=== PATIENT | male | born 1945 | race Asian ===

== ENCOUNTER 2017-02-11 10:36 | Observation (INO) | payer MEDICARE ==
[~2017-02-11 10:36] MED LIST: ACID REFLUX MED; ADULT LOW DOSE81 MG PO; ANXIETY MED; ATENOLOL/CHLORT1 TA PO; CALCIUM + VIT1 EACH PO; CHOLESTEROL PILL; COL-RITE100 M1 PO; DIOVAN80 M PO; DUONEB 2.5-0.5MG3 M1 NEB; HTN MED; K-DUR20 ME2 PO; LIPITOR40 MG PO; MED FOR OSTEOPOROSIS; METFORMIN HCL1000 MG PO; NON-ASPIRIN325 MG PO; OMEPRAZOLE20 M1 PO; SEROQUEL200 MG PO; SEROQUEL300 MG PO; TRICOR145 MG PO; [UNRECOGNIZED DRUG - REMARK]
[2017-02-11] MEDS ORDERED: RESTASIS0.4 ML/EA EACH EYE (10:40)
[2017-02-11] MEDS ORDERED: ATENOLOL-CHLOR1 EAC1 PO (10:40)
[2017-02-11] MEDS ORDERED: PRINIVIL10 M1 PO (10:40)
[2017-02-11] MEDS ORDERED: POTASSIUM CHLO20 ME3 PO (10:41)
[2017-02-11] MEDS ORDERED: FENOFIBRATE160 MG PO (10:41)
[2017-02-11] MEDS ORDERED: LIPITOR40 M1 PO (10:41)
[2017-02-11] MEDS ORDERED: MIRTAZAPINE30 M2 PO (10:42)
[2017-02-11] MEDS ORDERED: SEROQUEL200 M2 PO (10:42)
[2017-02-11] MEDS ORDERED: GLUCOPHAGE500 M3 PO (10:42)
[2017-02-11] MEDS ORDERED: TRAZODONE HCL50 M1 PO (10:42)
[2017-02-11] MEDS ORDERED: NAMENDA10 M1 PO (10:42)
[2017-02-11] MEDS ORDERED: CLOBETASOL PROP15 G1 TOP (10:43)
[2017-02-11] MEDS ORDERED: ASPIRIN81 M1 PO (10:43)
[2017-02-11 11:34] LABS: BASO % 0.2 % (0-2); EOS % 0.9 % (0-7); EOSINOPHIL ABSOLUTE COUNT 0.1 tho/cmm (0.0-0.7); HCT-HEMATOCRIT 38.2 % (36.0-53.5); HGB-HEMOGLOBIN 13.5 gm/dl (13.5-17.0); IMMATURE GRANULOCYTES ABSOLUTE 0.01 tho/cmm (0-0.03); IMMATURE GRANULOCYTES PERCENT 0.2 % (0-0.3); LYMPH % 31.9 % (20-45); LYMPH ABSOLUTE COUNT 1.8 tho/cmm (0.8-4.5); MCH (MEAN CORPUSCULAR HGB) 31.8 pg (28.0-32.0); MCHC MEAN CORPUSCULAR HGB CONC 35.3 % (32.0-36.0); MCV (MEAN CELL VOLUME) 89.9 fl (82.0-96.0); MEAN PLATELET VOLUME 12.1 cmc (9.4-12.4); MONO % 9.7 % (0-12); MONOCYTE ABSOLUTE COUNT 0.6 tho/cmm (0.0-1.2); NEUTROPHIL ABSOLUTE COUNT 3.3 tho/cmm (1.6-8.0); NEUTROPHIL-AUTOMATED 3.3 tho/cmm (1.6-8.0); NEUTROPHILS % 57.1 % (40-80); PLATELET COUNT 224 tho/cmm (150-450); RED BLOOD COUNT 4.25 mil/cmm (4.40-5.70); RED CELL DISTRIBUTION WIDTH 13.4 % (12.4-16.4); WHITE BLOOD COUNT 5.8 tho/cmm (4.0-10.0)
[2017-02-11 11:45] LABS: ALB/GLOB RATIO 0.9 (0.8-2.0); ALBUMIN 3.7 g/dl (3.5-5.0); ALKALINE PHOSPHATASE 38 U/L (33-138); ALT/SGPT 26 U/L (12-78); BILIRUBIN,TOTAL 0.4 mg/dl (0.0-1.5); BLOOD UREA NITROGEN 25 mg/dl (6-24); CALCIUM 8.9 mg/dl (8.5-10.5); CARBON DIOXIDE-VENOUS 26 mmol/L (22-32); CHLORIDE 96 mmol/l (96-110); CREATININE 1.49 mg/dl (0.60-1.30); GLUCOSE 179 mg/dL (70-110); LIPASE 327 U/L (73-393); SODIUM 133 mmol/L (135-145); eGFR VALUE FOR BLACK 54 mL/Min
[2017-02-11 11:51] LABS: ANION GAP 14 mmol/L (0-20); AST/SGOT 27 U/L (10-40)
[2017-02-11 12:32] LABS: URINE BILIRUBIN NEGATIVE (NEG); URINE BLOOD NEGATIVE (NEG); URINE GLUCOSE (UA) NEGATIVE (NEG); URINE KETONE NEGATIVE (NEG); URINE LEUKOCYTE ESTERASE NEGATIVE (NEG); URINE NITRITE NEGATIVE (NEG); URINE PROTEIN NEGATIVE (NEG)
[2017-02-11 12:35] LABS: URINE APPEARANCE CLEAR; URINE COLOR YELLOW
[2017-02-11 16:24] LABS: TSH-THYROID STIMULATING HORM. 0.94 uIU/ml (0.40-3.80)
[2017-02-12 05:57] LABS: ANION GAP 14 mmol/L (0-20); BLOOD UREA NITROGEN 19 mg/dl (6-24); CALCIUM 8.3 mg/dl (8.5-10.5); CARBON DIOXIDE-VENOUS 26 mmol/L (22-32); CHLORIDE 106 mmol/l (96-110); CREATININE 1.39 mg/dl (0.60-1.30); POTASSIUM 3.6 mmol/L (3.7-5.1); SODIUM 142 mmol/L (135-145); eGFR VALUE FOR BLACK 58 mL/Min
[2017-02-12 06:01] LABS: GLUCOSE 87 mg/dL (70-110)
[2017-02-12] MEDS ORDERED: ZOFRAN4 M2 PO (10:43)
[2017-02-12] MEDS ORDERED: PROTONIX40 M2 PO (13:10)
== END 2017-02-12 13:12 ==
LOC: EDMED 10:36 → EMR2 14:20 → CAR1 16:04
PROVIDERS: Emergency Medicine; ADMIT Family Medicine
PROC: 0DB58ZX Excision of Esophagus, Via Natural or Artificial Opening Endoscopic, Diagnostic (ICD-10-PCS; principal; 2017-02-11)
PROC: 0DB68ZX Excision of Stomach, Via Natural or Artificial Opening Endoscopic, Diagnostic (ICD-10-PCS; 2017-02-11)
PROC: 0DB98ZX Excision of Duodenum, Via Natural or Artificial Opening Endoscopic, Diagnostic (ICD-10-PCS; 2017-02-11)
DX: K22.8 Other specified diseases of esophagus (principal); K21.9 Gastro-esophageal reflux disease without esophagitis; E11.9 Type 2 diabetes mellitus without complications; I10 Essential (primary) hypertension; E78.5 Hyperlipidemia, unspecified; G47.33 Obstructive sleep apnea (adult) (pediatric); F32.9 Major depressive disorder, single episode, unspecified; E87.6 Hypokalemia; E86.0 Dehydration; E87.1 Hypo-osmolality and hyponatremia; N17.9 Acute kidney failure, unspecified; Z79.82 Long term (current) use of aspirin; Z79.84 Long term (current) use of oral hypoglycemic drugs; Z79.899 Other long term (current) drug therapy; Z80.0 Family history of malignant neoplasm of digestive organs; Z87.891 Personal history of nicotine dependence; Z98.890 Other specified postprocedural states
CPT/HCPCS: C9113; G0378; J2405; J3480; J7030